=== PATIENT | female | born 1990 | race Hispanic/Latino ===

== ENCOUNTER 2022-01-26 21:10 | Inpatient (IN) | payer MEDICAID, SELFPAY ==
[2022-01-26 21:49] VITALS: BMI 26.7
[2022-01-26] MEDS ORDERED: hydrALAZINE 20 MG/ML VIAL SLOW IVP PRN ×2 (22:29→23:56)
[2022-01-26] MEDS ORDERED: NS w/ Oxytocin 30 units 500 ML IV SCH ×2 (23:45)
[2022-01-26] MEDS ORDERED: Lactated Ringer's 1,000 ML IV SCH (23:45)
[2022-01-26] MEDS ORDERED: Fentanyl 2 mcg/Bup 0.1% Cadd 100 ML ONE (23:53)
[2022-01-26] MEDS ORDERED: Lidocaine 1% (PF) 30 ML VIAL SC PRN (23:56)
[2022-01-26] MEDS ORDERED: Docusate 100 MG CAP PO PRN (23:56)
[2022-01-26] MEDS ORDERED: Promethazine HCl 25 MG/ML VIAL IM PRN (23:56)
[2022-01-26] MEDS ORDERED: Ibuprofen 800 MG TAB PO PRN (23:56)
[2022-01-26] MEDS ORDERED: Ondansetron PF 4 MG/2 ML Vial IVP PRN (23:56)
[2022-01-27] MEDS ORDERED: Misoprostol 200 MCG TAB ONE (00:02)
[2022-01-27] MEDS ORDERED: Methylergonovine 0.2 MG/ML VIAL ONE (00:02)
[2022-01-27] MEDS ORDERED: NS w/ Oxytocin 30 units 500 ML ONE (00:02)
[2022-01-27] MEDS ORDERED: Carboprost 250 MCG/ML AMP ONE (00:03)
[2022-01-27] MEDS ORDERED: Lidocaine 1% (PF) 30 ML VIAL ONE (00:08)
[2022-01-27 00:28] LABS: Hemoglobin 12.7 g/dL (12.0-15.5); Mean Corpuscular HGB CONC 34.3 g/dL (32.0-36.0); Mean Corpuscular Hemoglobin 29.1 pg (27.0-33.0); Mean Corpuscular Volume 84.9 fl (81.6-98.3); Mean Platelet Volume 11.2 fl (7.4-10.4); Platelet Count 186 10x3/uL (150-450); RBC Distribution Width 14.2 % (11.5-14.5); Red Blood Cell (RBC) Count 4.36 10x6/uL (3.90-5.03); White Blood Cell (WBC) Count 9.1 10x3/uL (3.5-10.5)
[2022-01-27 00:52] LABS: HBSAg Index 0.22 S/CO (0-0.99); Hep B Surf Ag Non-Reactive S/CO (NonReactive); Syphilis Antibody Nonreactive (Nonreactive); Syphilis Antibody Index 0.55 S/CO (<1.00 Non-Reactive)
[2022-01-27] MEDS ORDERED: Phytonadione Neonatal 1 MG/0.5 ML AMP ONE (01:34)
[2022-01-27] MEDS ORDERED: Erythromycin Base 0.5% Oint 1 GM TUBE ONE (01:34)
[2022-01-27 01:52] LABS: SARS-CoV-2 NAA Rapid Test DETECTED (NotDetected)
[2022-01-27] MEDS ORDERED: Lanolin Ointment 7 GM TUBE TOP PRN (02:47)
[2022-01-27] MEDS ORDERED: Misoprostol 200 MCG TAB VAG PRN (02:47)
[2022-01-27] MEDS ORDERED: Benzocaine-Menthol 82.5 ML CAN TOP PRN (02:47)
[2022-01-27] MEDS ORDERED: Milk Of Magnesia 30 ML UDCUP PO PRN (02:47)
[2022-01-27] MEDS ORDERED: hydrALAZINE 20 MG/ML VIAL SLOW IVP PRN (02:47)
[2022-01-27] MEDS ORDERED: Boostrix 0.5 ML (Tdap) VIAL IM ONE (02:47)
[2022-01-27] MEDS ORDERED: Methylergonovine 0.2 MG/ML VIAL IM PRN (02:47)
[2022-01-27] MEDS ORDERED: Ondansetron PF 4 MG/2 ML Vial IVP PRN (02:47)
[2022-01-27] MEDS ORDERED: NS w/ Oxytocin 30 units 500 ML IV SCH (02:47)
[2022-01-27] MEDS ORDERED: Bisacodyl 10 MG SUPP PR PRN (02:47)
[2022-01-27] MEDS: Acetaminophen 325 MG TAB PO SCH ×4 (04:21→21:45)
[2022-01-27] MEDS: Ibuprofen 800 MG TAB PO SCH ×3 (05:10→21:46)
[2022-01-27] MEDS: Docusate 100 MG CAP PO SCH ×2 (08:47→21:46)
[2022-01-27] MEDS: Ferrous Sulfate 325 MG TAB PO SCH ×2 (08:47→18:22)
[2022-01-27] MEDS: Prenatal Vitamin 1 TAB PO SCH (08:47)
[2022-01-28 01:11] VITALS: TEMP 98
[2022-01-28] MEDS: Acetaminophen 325 MG TAB PO SCH (03:58)
[2022-01-28] MEDS: Ibuprofen 800 MG TAB PO SCH (05:29)
[2022-01-28] MEDS: Prenatal Vitamin 1 TAB PO SCH (08:01)
[2022-01-28] MEDS: Docusate 100 MG CAP PO SCH (08:01)
[2022-01-28 08:40] VITALS: BP 100/56
== END 2022-01-28 16:45 | disposition home or self-care (01) | DRG 805 ==
LOC: CSHLD/OP 21:10 → CSHLD 23:41 → CSHPED 01-27 02:59
PROVIDERS: ADMIT Family Medicine; ATTEND Family Medicine
PROC: 10E0XZZ Delivery of Products of Conception, External Approach (ICD-10-PCS; principal; 2022-01-27)
PROC: 8E0ZXY6 Isolation (ICD-10-PCS; 2022-01-27)
DX: O98.52 Other viral diseases complicating childbirth (principal); U07.1 COVID-19; Z37.0 Single live birth; Z3A.38 38 weeks gestation of pregnancy; O70.1 Second degree perineal laceration during delivery
CPT/HCPCS: 85027; 86780; 86850; 86900; 86901; 87340; 99285; J2590; J7120; U0002